=== PATIENT | male | born 1990 | race Caucasian/White ===

== ENCOUNTER → 2020-01-30 14:26 | Outpatient (BNVA) | payer MEDICAID, SELFPAY | PROVIDERS: PCP Internal Medicine; Visit Provider Internal Medicine Endocrinology, Diabetes & Metabolism | DX: E89.0 Postprocedural hypothyroidism (principal); E05.00 Thyrotoxicosis with diffuse goiter without thyrotoxic crisis or storm | CPT/HCPCS: 99212 ==

== ENCOUNTER 2020-08-01 14:00 | Outpatient (REF) | payer OTHER, MEDICAID, SELFPAY ==
[2020-08-01 16:27] LABS: Thyroid Stimulating Hormone 0.35 uIU/mL (0.32-4.0)
== END 2020-08-01 14:01 | disposition home or self-care (01) ==
LOC: HO.LAB 14:00
PROVIDERS: PCP Internal Medicine; Visit Provider Internal Medicine Endocrinology, Diabetes & Metabolism
DX: E05.00 Thyrotoxicosis with diffuse goiter without thyrotoxic crisis or storm (principal); E89.0 Postprocedural hypothyroidism; F17.200 Nicotine dependence, unspecified, uncomplicated; Z79.899 Other long term (current) drug therapy; Z71.6 Tobacco abuse counseling
CPT/HCPCS: 36415; 84439; 84443; 99212

== ENCOUNTER → 2021-03-07 09:13 | Outpatient (BNV) | payer OTHER, MEDICAID, SELFPAY | PROVIDERS: PCP Internal Medicine; Visit Provider Internal Medicine Medical Oncology | DX: R59.0 Localized enlarged lymph nodes (principal); D64.9 Anemia, unspecified | CPT/HCPCS: 99213; 99214 ==

== ENCOUNTER 2021-03-27 08:43 | Outpatient (REF) | payer OTHER, SELFPAY ==
--- NOTE | ~2021-03-27 | US_ITS ---
EXAMINATION: US SOFT TISSUE HEAD/NECK CLINICAL INFORMATION: Cervical lymphadenopathy. COMPARISON: Ultrasound soft tissue head/neck 11/07/2019. TECHNIQUE: Linear transducer grayscale and color Doppler examination of the thyroid bed and surrounding soft tissue. FINDINGS: There are are multiple bilateral cervical lymph nodes. There are at least 5 lymph nodes identified on the right and 4 lymph nodes identified on the left. Largest right cervical lymph node is a 2.3 x 1 x 2 cm zone 2 lymph node. This demonstrates abnormal ultrasound morphology with cortical thickening and slitlike hilum. The largest left cervical lymph node is a 2.6 x 0.8 x 1.9 cm level 2 lymph node. This also demonstrates cortical thickening and slitlike hilum. Both these lymph nodes demonstrate both hilar and cortical flow. The larger lymph nodes appear similar to October 2019 exam. US/US soft tiss head and/or neck IMPRESSION: Bilateral cervical lymphadenopathy. Larger lymph nodes are upper normal in size and demonstrate abnormal ultrasound morphology and flow.
--- NOTE | ~2021-03-27 | US_ITS ---
EXAMINATION: US pelvic, LIMITED/FOLLOW UP CLINICAL INFORMATION: Inguinal lymphadenopathy COMPARISON: CT of the abdomen and pelvis January 2015 TECHNIQUE: Grayscale and color imaging of the bilateral inguinal regions using a linear transducer FINDINGS: There is bilateral inguinal lymphadenopathy. 3 lymph nodes are identified in the right and 4 lymph nodes are identified on the left. Larger lymph nodes are upper normal in size. Lymph nodes demonstrate normal ultrasound morphology and flow. Largest right inguinal lymph node measures 4.2 x 1 x 1.5 cm and largest left inguinal lymph node measures 2.2 x 0.5 x 1.9 cm. US/US pelvic limited IMPRESSION: Bilateral inguinal lymphadenopathy. Larger lymph nodes are upper normal in size. All lymph nodes demonstrate normal ultrasound morphology and flow.
== END 2021-03-27 08:44 | disposition home or self-care (01) ==
LOC: HO.HMGCX 08:43
PROVIDERS: PCP Internal Medicine; Visit Provider Internal Medicine Medical Oncology
DX: R59.0 Localized enlarged lymph nodes (principal)
CPT/HCPCS: 76536; 76857

== ENCOUNTER 2021-05-15 09:25 | Outpatient (REF) | payer OTHER, MEDICAID, SELFPAY ==
--- NOTE | ~2021-05-15 | US_ITS ---
EXAMINATION: ULTRASOUND-GUIDED LYMPH NODE BIOPSY CLINICAL INFORMATION: Right cervical lymphadenopathy. COMPARISON: Previous ultrasounds March 2021 and October 2019. TECHNIQUE: Procedure and risks and benefits including bleeding and infection were discussed with the patient and informed consent was obtained. The right neck was prepped and draped in the usual sterile fashion. The skin and soft tissues were anesthetized with 1% lidocaine plain. Using ultrasound guidance and a 22-gauge needle, access to the enlarged right level 2 lymph node was obtained. Three 22-gauge FNA specimens were obtained. Specimen was sent for cytology, flow cytometry and microbiology studies. FINDINGS: There is a 3.9 x 2.4 x 1 cm right submandibular or level 2 cervical lymph node that was targeted for fine-needle aspiration. This demonstrates hilar flow. This appears diffusely hypoechoic with loss of normal fatty hilum. US/US biopsy lymph node IMPRESSION: Ultrasound-guided right cervical lymph node fine-needle aspiration.
[2021-05-15] MEDS: Lidocaine HCl 1 % MPF 5 ML VIAL SUBCUT (09:55)
== END 2021-05-15 09:26 | disposition home or self-care (01) ==
LOC: HO.US 09:25
PROVIDERS: Radiology Diagnostic Radiology; Visit Provider Internal Medicine Medical Oncology
DX: R59.0 Localized enlarged lymph nodes (principal)
CPT/HCPCS: 36415; 38505; 76942; 87071; 87073; 87205; 88172; 88173; 88177; 88184; 88185

== ENCOUNTER 2022-03-11 09:14 | Outpatient (REF) | payer MEDICAID, SELFPAY ==
[2022-03-11 09:36] LABS: MANUAL DIFF FLAG NO
[2022-03-11 10:36] LABS: Basophils Percent Auto 0.8 % (0-2); Eosinophils Absolute Auto 0.1 X10*3/uL (0.0-0.4); Eosinophils Percent Auto 1.3 % (0-4); Hematocrit 38.8 % (42.0-52.0); Lymphocytes Absolute Auto 1.6 X10*3/uL (1.2-4.9); Lymphocytes Percent Auto 41.5 % (20-40); Mean Corpuscular HGB Conc 33.5 g/dl (31.0-36.0); Mean Corpuscular Hemoglobin 33.1 pg (27.0-33.0); Mean Corpuscular Volume 98.7 fL (80.0-98.0); Mean Platelet Volume 10.3 fL (9.4-12.4); Monocytes Absolute Auto 0.4 X10*3/uL (0.1-1.2); Monocytes Percent Auto 9.7 % (2-11); Neutrophils Absolute Auto 1.8 x10*3/uL (2.0-8.3); Neutrophils Percent Auto 46.7 % (45-73); Platelet Count 358 X10*3/uL (160-400); Red Blood Count 3.93 X10*6/uL (4.60-5.80); White Blood Count 3.8 X10*3/uL (4.8-10.8)
[2022-03-11 11:19] LABS: Erythrocyte Sedimentation Rate 7 MM/HR (0-15)
[2022-03-11 11:28] LABS: Alanine Aminotransferase 14 U/L (0-40); Albumin Level 4.6 g/dL (3.5-5.0); Alkaline Phosphatase 66 U/L (39-117); Anion Gap 12 (12-20); Aspartate Amino Transferase 19 U/L (5-37); Bilirubin Total 1.2 mg/dL (0.0-1.0); Blood Urea Nitrogen 11 mg/dL (9-16); Calcium 9.6 mg/dL (8.4-10.2); Carbon Dioxide 26 mmol/L (22-29); Chloride 108 mmol/L (96-108); Estimated Glomerular Filt Rate > 60; Glucose Random 70 mg/dL (60-115); Potassium 4.4 mmol/L (3.3-5.1); Sodium 142 mmol/L (135-145); Total Protein 6.9 g/dL (6.5-8.0)
[2022-03-11 11:45] LABS: Ferritin 176 ng/mL (20-250)
== END 2022-03-11 09:15 | disposition home or self-care (01) ==
LOC: HO.LAB 09:14
PROVIDERS: Absent Provider Internal Medicine Medical Oncology; Visit Provider Internal Medicine Endocrinology, Diabetes & Metabolism
DX: D64.9 Anemia, unspecified (principal)
CPT/HCPCS: 36415; 80053; 82728; 85025; 85652

== ENCOUNTER → 2022-03-12 07:54 | Outpatient (BNVA) | payer MEDICAID, SELFPAY | PROVIDERS: PCP Internal Medicine; Visit Provider Internal Medicine Endocrinology, Diabetes & Metabolism | DX: E89.0 Postprocedural hypothyroidism (principal); E05.00 Thyrotoxicosis with diffuse goiter without thyrotoxic crisis or storm; F17.210 Nicotine dependence, cigarettes, uncomplicated | CPT/HCPCS: 36415; 84439; 84443; 99212 ==

== ENCOUNTER 2022-03-12 08:21 | Outpatient (REF) | payer MEDICAID, SELFPAY ==
[2022-03-12 11:43] LABS: Thyroid Stimulating Hormone 0.22 uIU/mL (0.32-4.0)
== END 2022-03-12 08:22 | disposition home or self-care (01) ==
LOC: HO.10HDL 08:21
PROVIDERS: Visit Provider Internal Medicine Endocrinology, Diabetes & Metabolism
DX: E89.0 Postprocedural hypothyroidism (principal)
CPT/HCPCS: 36415; 84439; 84443

== ENCOUNTER 2022-03-24 07:49 | Outpatient (REF) | payer MEDICAID, SELFPAY ==
[2022-03-24 08:01] LABS: MANUAL DIFF FLAG NO
[2022-03-24 08:24] LABS: Basophils Percent Auto 0.7 % (0-2); Eosinophils Absolute Auto 0.1 X10*3/uL (0.0-0.4); Eosinophils Percent Auto 2.4 % (0-4); Hematocrit 40.9 % (42.0-52.0); Hemoglobin 13.5 g/dl (14.0-18.0); Imm Gran Abs Auto 0.01 X10*3/uL (0.00-0.03); Imm Gran Pct Auto 0.2 % (0.0-0.4); Lymphocytes Absolute Auto 1.8 X10*3/uL (1.2-4.9); Lymphocytes Percent Auto 40.2 % (20-40); Mean Corpuscular Hemoglobin 32.5 pg (27.0-33.0); Mean Corpuscular Volume 98.6 fL (80.0-98.0); Mean Platelet Volume 9.8 fL (9.4-12.4); Monocytes Absolute Auto 0.4 X10*3/uL (0.1-1.2); Monocytes Percent Auto 8.8 % (2-11); Neutrophils Absolute Auto 2.2 x10*3/uL (2.0-8.3); Neutrophils Percent Auto 47.7 % (45-73); Platelet Count 286 X10*3/uL (160-400); Red Blood Count 4.15 X10*6/uL (4.60-5.80); White Blood Count 4.6 X10*3/uL (4.8-10.8)
[2022-03-24 09:00] LABS: Alanine Aminotransferase 16 U/L (0-40); Albumin Level 4.7 g/dL (3.5-5.0); Alkaline Phosphatase 71 U/L (39-117); Anion Gap 13 (12-20); Aspartate Amino Transferase 18 U/L (5-37); Bilirubin Total 1.3 mg/dL (0.0-1.0); Blood Urea Nitrogen 14 mg/dL (9-16); Calcium 9.6 mg/dL (8.4-10.2); Carbon Dioxide 25 mmol/L (22-29); Chloride 106 mmol/L (96-108); Estimated Glomerular Filt Rate > 60; Glucose Random 93 mg/dL (60-115); Lactate Dehydrogenase 125 U/L (118-273); Potassium 4.3 mmol/L (3.3-5.1); Sodium 140 mmol/L (135-145)
[2022-03-24 09:08] LABS: Free T4 (Free Thyroxine) 1.24 ng/dL (0.71-1.85)
== END 2022-03-24 07:50 | disposition home or self-care (01) ==
LOC: HO.LAB 07:49
PROVIDERS: Absent Provider Internal Medicine Endocrinology, Diabetes & Metabolism; Visit Provider Internal Medicine Medical Oncology
DX: E89.0 Postprocedural hypothyroidism (principal); R59.0 Localized enlarged lymph nodes
CPT/HCPCS: 36415; 80053; 83615; 84439; 84443; 85025

== ENCOUNTER 2022-04-30 13:29 | Outpatient (REF) | payer MEDICAID, SELFPAY ==
[2022-04-30 14:35] LABS: Free T4 (Free Thyroxine) 0.99 ng/dL (0.71-1.85); Thyroid Stimulating Hormone 0.28 uIU/mL (0.32-4.0)
== END 2022-04-30 13:30 | disposition home or self-care (01) ==
LOC: HO.LAB 13:29
PROVIDERS: Visit Provider Internal Medicine Endocrinology, Diabetes & Metabolism
DX: E89.0 Postprocedural hypothyroidism (principal)
CPT/HCPCS: 36415; 84439; 84443

== ENCOUNTER 2023-03-11 16:30 | Outpatient (AMB) | payer OTHER, SELFPAY ==
--- NOTE | 2023-03-11 16:34 | MHC.OFFVIS ---
Intake Vital Signs 03/11/23 16:35 Height 5 ft 6 in Weight 141 lb 5.061 oz BMI 22.8 BP 100/64 Blood Pressure Location Rt brachial Position Sitting Pulse 63 Pulse Source Pulse Oximeter Intake Visit Reasons: post-surgical hypothyroidism Intake Note: Patient present today for post-surgical Hypothyroidism follow up visit. Patient Admitting Representative Required: Yes Patient Admitting Representative Language: Labeling Machine Operator Name: Nikole Medical Staff, CMI Information Interpreted: non-clinical & clinical Accompanied by: Self / Same As Patient Allergies No Known Allergies Allergy (Verified 03/11/23 16:37) HPI HPI Comments History of Present Illness Details 31 yo male today for fup visit, for post surgical hypothyroidism. He is feeling well. Has no complaints. Last visit I had some concern about acromegaly. The IGF-1 was normal. He is currently on levothyroxine 75 mcg daily. Has a good method of administration is 100% adherent. He is complaining of fatigue, increased sweating. He reports that he sweats a lot at nighttime. He also is complaining that his hands are getting bigger. His complaining of hand pain in the joints. He has h/o of Graves disease, treated with total thyroidectomy on 5 due to active graves disease and smoking. He is 100 % adherent, but is taking it with Vit D. He denies diarrhea, palpitations, denies dysphagia, dyspnea, dysphonia, denies tremors, palpitations, irritability, + anxiety, denies eye dryness, eye pain, excessive lacrimation, diplopia 01/30/2020 [facility] TSH 3.05 mIU/mL Free T4 1.2 ng/dL IGF-1 137 ng per mL Laboratory Tests 02/18/18 09:30 Free T4 1.76 TSH 3rd Generation 0.01 L [facility] Medical History (Updated 10/28/22 @ 11:44 by Kueski [place]) Graves disease Post-surgical hypothyroidism Surgical History Hx of thyroidectomy Family History Father No problems noted. Mother Depression Maternal Grandfather Cancer Maternal Aunt Cancer Social History Household Members: Significant Other and Children Housing: Apartment Are you a primary respiratory care assistant to a significant other at home: No Do you presently have visiting nurse or other home services: No Patient Tobacco Use Status: Current someday Tobacco user Tobacco use type: Cigarette Substance Use Type: Marijuana service: No Current occupational status: employed Physical Exam Const Other: Healed scar status post thyroidectomy Assessment & Plan Assessment & Plan (1) Post-surgical hypothyroidism: Code(s): E89.0 - Postprocedural hypothyroidism Plan: This is a 32-year-old male with a history of post-surgical hypothyroidism. He appears to be clinically euthyroid on 75 mcg levothyroxine. Plan is to check a TSH and free T4 and adjust levothyroxine accordingly. Coding Level of Care Code Est Pt Level 3 (80048) Diagnoses Post-surgical hypothyroidism E89.0
[2023-03-11 16:35] VITALS: BP 100/64; PULSE 63; BMI 22.8
== END 2023-03-11 16:45 | disposition home or self-care (01) ==
PROVIDERS: PCP Internal Medicine; Referring Provider Internal Medicine; Visit Provider Internal Medicine Endocrinology, Diabetes & Metabolism
DX: E89.0 Postprocedural hypothyroidism (principal)
CPT/HCPCS: 99213

== ENCOUNTER → 2023-03-11 16:30 | Outpatient (BNVA) | payer MEDICAID, SELFPAY | PROVIDERS: Visit Provider Internal Medicine Endocrinology, Diabetes & Metabolism | DX: E89.0 Postprocedural hypothyroidism (principal) | CPT/HCPCS: 99212 ==

== ENCOUNTER 2023-03-23 15:41 | Outpatient (REF) | payer OTHER, SELFPAY ==
[2023-03-23 16:57] LABS: Free T4 (Free Thyroxine) 1.03 ng/dL (0.71-1.85); Thyroid Stimulating Hormone 1.44 uIU/mL (0.32-4.0)
== END 2023-03-23 15:42 | disposition home or self-care (01) ==
LOC: HO.LAB 15:41
PROVIDERS: Visit Provider Internal Medicine Endocrinology, Diabetes & Metabolism
DX: E89.0 Postprocedural hypothyroidism (principal)
CPT/HCPCS: 36415; 84439; 84443

== ENCOUNTER 2023-09-09 16:12 | Outpatient (AMB) | payer OTHER, SELFPAY ==
[2023-09-09 16:15] VITALS: BP 120/84; PULSE 69; BMI 22.0
--- NOTE | 2023-09-09 16:15 | A.OFFVIS_ITS ---
Vital Signs 09/09/23 16:15 Height 5 ft 6 in Weight 136 lb 0.403 oz BMI 22.0 BP 120/84 Blood Pressure Location Rt brachial Pulse 69 Pulse Source Pulse Oximeter Intake Visit Reasons: f/u postsurgical hypothyroidism Intake Note: Patient presents today for a follow-up Realtime Captioner Required: Yes Realtime Captioner Language: Entry Level Business Analyst Services: Realtime Captioner Present Realtime Captioner Name: Ina Accompanied by: Self / Same As Patient Allergies No Known Allergies Allergy (Verified 03/11/23 16:37) HPI Comments Details: 32 yo male today for fup visit, for post surgical hypothyroidism. He is feeling well. Has no complaints. Last visit I had some concern about acromegaly. The IGF-1 was normal. He is currently on levothyroxine 75 mcg daily. Has a good method of administration is 100% adherent. He is complaining of fatigue, increased sweating. He reports that he sweats a lot at nighttime. He also is complaining that his hands are getting bigger. His complaining of hand pain in the joints. He has h/o of Graves disease, treated with total thyroidectomy on 5 due to active graves disease and smoking. He is 100 % adherent, but is taking it with Vit D. He denies diarrhea, palpitations, denies dysphagia, dyspnea, dysphonia, denies tremors, palpitations, irritability, + anxiety, denies eye dryness, eye pain, excessive lacrimation, diplopia 01/30/2020 [facility] TSH 3.05 mIU/mL Free T4 1.2 ng/dL IGF-1 137 ng per mL Laboratory Tests 02/18/18 09:30 Free T4 1.76 TSH 3rd Generation 0.01 L Claims compliance [facility] Medical History (Updated 10/28/22 @ 11:44 by Frequent Browser [place]) Graves disease Post-surgical hypothyroidism Surgical History Hx of thyroidectomy Family History Father No problems noted. Mother Depression Maternal Grandfather Cancer Maternal Aunt Cancer Social History Household Members: Significant Other and Children Housing: Apartment Are you a primary health care marketing specialist to a significant other at home: No Do you presently have visiting nurse or other home services: No Patient Tobacco Use Status: Current someday Tobacco user Tobacco use type: Cigarette Substance Use Type: Marijuana service: No Current occupational status: employed Physical Exam Vital Signs: BMI result Body Mass Index 22.0 Const Other: Healed scar status post thyroidectomy Assessment & Plan Assessment & Plan (1) Post-surgical hypothyroidism: Code(s): E89.0 - Postprocedural hypothyroidism Category: Medical Plan: This is a 32-year-old male with a history of post-surgical hy pothyroidism. He appears to be clinically euthyroid on 75 mcg levothyroxine. Plan is to check a TSH and free T4 and adjust levothyroxine accordingly. If TSH is within normal limits, patient returned to the care of his primary care provider returned back to endocrinology as needed Orders: Orders Thyroid Stimulating Hormone Today E89.0 - Postprocedural hypothyroidism Free T4 (Free Thyroxine) Today E89.0 - Postprocedural hypothyroidism Coding Level of Care Code Est Pt Level 3 (69821) Diagnoses Post-surgical hypothyroidism E89.0
== END 2023-09-09 16:25 | disposition home or self-care (01) ==
PROVIDERS: PCP Internal Medicine; Visit Provider Internal Medicine Endocrinology, Diabetes & Metabolism
DX: E89.0 Postprocedural hypothyroidism (principal)
CPT/HCPCS: 99213

== ENCOUNTER → 2023-09-09 16:12 | Outpatient (BNVA) | payer OTHER, SELFPAY | PROVIDERS: PCP Internal Medicine; Visit Provider Internal Medicine Endocrinology, Diabetes & Metabolism | DX: E89.0 Postprocedural hypothyroidism (principal) | CPT/HCPCS: 99212 ==

== ENCOUNTER 2023-09-14 14:19 | Outpatient (REF) | payer OTHER, SELFPAY ==
[2023-09-14 16:06] LABS: MANUAL DIFF FLAG NO
[2023-09-14 16:16] LABS: Basophils Absolute Auto 0.1 X10*3/uL (0.0-0.2); Eosinophils Absolute Auto 0.2 X10*3/uL (0.0-0.4); Eosinophils Percent Auto 4.6 % (0-4); Hemoglobin 12.8 g/dl (14.0-18.0); Imm Gran Abs Auto 0.01 X10*3/uL (0.00-0.03); Imm Gran Pct Auto 0.2 % (0.0-0.4); Mean Corpuscular HGB Conc 33.7 g/dl (31.0-36.0); Mean Corpuscular Hemoglobin 32.7 pg (27.0-33.0); Mean Corpuscular Volume 97.2 fL (80.0-98.0); Mean Platelet Volume 10.3 fL (9.4-12.4); Monocytes Absolute Auto 0.4 X10*3/uL (0.1-1.2); Monocytes Percent Auto 7.1 % (2-11); Neutrophils Absolute Auto 2.6 x10*3/uL (2.0-8.3); Neutrophils Percent Auto 49.1 % (45-73); Platelet Count 275 X10*3/uL (160-400); Red Blood Count 3.91 X10*6/uL (4.60-5.80); Red Cell Distribution Width 11.1 % (11.0-16.0); White Blood Count 5.2 X10*3/uL (4.8-10.8)
[2023-09-14 16:38] LABS: Alanine Aminotransferase 14 U/L (0-40); Albumin Level 4.5 g/dL (3.5-5.0); Alkaline Phosphatase 66 U/L (39-117); Anion Gap 11 (12-20); Aspartate Amino Transferase 17 U/L (5-37); Bilirubin Total 1.1 mg/dL (0.0-1.0); Blood Urea Nitrogen 13 mg/dL (9-16); Calcium 9.6 mg/dL (8.4-10.2); Carbon Dioxide 29 mmol/L (22-29); Chloride 103 mmol/L (96-108); Estimated Glomerular Filt Rate > 60; Glucose Random 101 mg/dL (60-115); Potassium 3.8 mmol/L (3.3-5.1); Sodium 139 mmol/L (135-145)
[2023-09-14 16:54] LABS: Ferritin 167 ng/mL (20-250)
[2023-09-14 16:55] LABS: Free T4 (Free Thyroxine) 0.93 ng/dL (0.71-1.85); Thyroid Stimulating Hormone 1.26 uIU/mL (0.32-4.0)
== END 2023-09-14 14:20 | disposition home or self-care (01) ==
LOC: HO.HHCL 14:19
PROVIDERS: Internal Medicine Endocrinology, Diabetes & Metabolism; Visit Provider Internal Medicine Medical Oncology
DX: E89.0 Postprocedural hypothyroidism (principal); R59.0 Localized enlarged lymph nodes
CPT/HCPCS: 36415; 80053; 82728; 84439; 84443; 85025

== ENCOUNTER 2023-12-28 11:55 | Emergency (ER) | payer OTHER, SELFPAY ==
--- NOTE | ~2023-12-28 | XR_ITS ---
EXAMINATION: XR CHEST CLINICAL INFORMATION: Syncope. COMPARISON: 10/23/2017. TECHNIQUE: 2 views of the chest were obtained. FINDINGS: Cardiac, hilar, and mediastinal contours are normal. The lungs are clear bilaterally. There is no soft tissue or osseous abnormality. There is a mild dextroconvex scoliosis of the thoracic spine, apex at T6. XR/XR chest 2V IMPRESSION: No active pulmonary disease. Electronically signed by: Oleksandr Leonardo MD 12/28/2023 01:20 PM [facility]
--- NOTE | ~2023-12-28 | CT_ITS ---
EXAMINATION: CT HEAD WITHOUT CONTRAST CT CERVICAL SPINE WITHOUT CONTRAST CLINICAL INFORMATION: Fall. Head strike. COMPARISON: None. TECHNIQUE: Imaging was performed from the skull base to vertex without intravenous administration of contrast. In addition, helical noncontrast CT imaging was acquired through the cervical spine and source images were reviewed along with axial reconstructions and sagittal and coronal MPRs. [This CT examination was performed using dose optimization techniques as appropriate, variously including the following: *Automated exposure control *Adjustment of mA and/or kV according to patient size (this includes techniques or standardized protocols for targeted exams where dose is matched to indication/reason for exam; i.e. extremities or head) *Use of iterative reconstruction technique] DLP: 317 mGy-cm FINDINGS: HEAD: No intracranial mass, hemorrhage, or midline shift is visualized. The ventricles and sulci are proportional. No extra-axial collections are identified. The paranasal sinuses and mastoid air cells are well aerated. CERVICAL SPINE: There is no evidence of acute cervical spine fracture. Vertebral bodies remain normal in height. Cervical vertebrae have normal alignment. Cervical disc heights are normal. Facet joints are normal. No pre- or paravertebral soft tissue abnormality is identified. Limited assessment of the lung apices is unremarkable. CT/CT head/brain wo IV con IMPRESSION: 1. No acute intracranial pathology. 2. No CT evidence of acute cervical spine fracture or traumatic subluxation. Electronically signed by: Demar Cabrera MD 12/28/2023 03:14 PM [facility]
--- NOTE | ~2023-12-28 | CT_ITS ---
EXAMINATION: CT HEAD WITHOUT CONTRAST CT CERVICAL SPINE WITHOUT CONTRAST CLINICAL INFORMATION: Fall. Head strike. COMPARISON: None. TECHNIQUE: Imaging was performed from the skull base to vertex without intravenous administration of contrast. In addition, helical noncontrast CT imaging was acquired through the cervical spine and source images were reviewed along with axial reconstructions and sagittal and coronal MPRs. [This CT examination was performed using dose optimization techniques as appropriate, variously including the following: *Automated exposure control *Adjustment of mA and/or kV according to patient size (this includes techniques or standardized protocols for targeted exams where dose is matched to indication/reason for exam; i.e. extremities or head) *Use of iterative reconstruction technique] DLP: 317 mGy-cm FINDINGS: HEAD: No intracranial mass, hemorrhage, or midline shift is visualized. The ventricles and sulci are proportional. No extra-axial collections are identified. The paranasal sinuses and mastoid air cells are well aerated. CERVICAL SPINE: There is no evidence of acute cervical spine fracture. Vertebral bodies remain normal in height. Cervical vertebrae have normal alignment. Cervical disc heights are normal. Facet joints are normal. No pre- or paravertebral soft tissue abnormality is identified. Limited assessment of the lung apices is unremarkable. CT/CT cervical spine wo IV con IMPRESSION: 1. No acute intracranial pathology. 2. No CT evidence of acute cervical spine fracture or traumatic subluxation. Electronically signed by: Demar Cabrera MD 12/28/2023 03:14 PM [facility]
[2023-12-28 12:22] VITALS: BP 142/76; PULSE 65; RESP 16; TEMP 36.6; O2SAT 100; BMI 22.2
--- NOTE | 2023-12-28 12:28 | ED.GENADULT ---
HPI - General Adult General Chief complaint: Syncope Stated complaint: fall head Time Seen by Provider: 12/28/23 21:26 Source: patient Mode of arrival: ambulatory Limitations: no limitations History of Present Illness ED Provider: KD RICKETTS narrative: 33 yo male with PMH of graves disease here with c/o drinking a beverly juice drink last night that then caused nausea and significant abdominal pain then went to use bathroom and woke up on the floor. Family found his leaning on wall on the floor. He denies feeling ill before the drink. This has never happened before to him. No recent travel, procedures, chest pain, dyspnea. He came in because when he bends over he feels dizzy and he still feels dizzy today on and off. He did not work MD complaint: syncope Onset (ago): day(s) (1) Location: head Radiation: non-radiation Severity: mild Quality: other (dizziness) Relieving factors: none Exacerbating factors: movement Associated symptoms: denies other symptoms Treatments prior to arrival: none Related Data Home Medications ?Medication ?Instructions ?Recorded ?Confirmed albuterol sulfate 90 mcg/actuation 2 puff PO QID PRN wheezing 08/01/20 11/26/23 aerosol inhaler fluticasone propionate 50 2 spray intranasal DAILY congestion 08/01/20 11/26/23 mcg/actuation nasal spray,suspension lidocaine 5 % topical patch 5 patch topical DAILY 04/11/21 11/26/23 Previous Rx's ?Medication ?Instructions ?Recorded levothyroxine 75 mcg tablet 75 mcg PO DAILY 30 days #30 tabs 09/16/23 Allergies Allergy/AdvReac Type Severity Reaction Status Date / Time No Known Allergies Allergy Verified 12/28/23 12:25 Review of Systems Review of Systems: Constitutional : No Fever, No Chills, No Fatigue ENT/Mouth : No sore throat, No Rhinorrhea Eyes: No Eye Pain, No Swelling, No Redness Cardiovascular : No Chest Pain, No SOB, No Dyspnea on Exertion Respiratory : No Cough, No Sputum Gastrointestinal : No Nausea, No Vomiting, No Diarrhea, No abdominal Pain Genitourinary : No Dysuria, No Urinary Frequency, No Hematuria, Musculoskeletal : No joint pain, No Myalgias, No Joint Swelling Skin : No Skin Lesions, No rash Neuro : No Weakness, No Numbness, pos Dizziness, no Headache Psych : No Anxiety/Panic, No Depression All other systems reviewed and are negative [facility] Past Medical History Attestation statement: The following information was validated with the patient. Source: old records reviewed Medical History Graves disease Post-surgical hypothyroidism Surgical History Hx of thyroidectomy Family History Family History Father No problems noted. Mother Depression Maternal Grandfather Cancer Maternal Aunt Cancer Social History Social History Household Members: Significant Other and Children Housing: Apartment Are you a primary career development engineer to a significant other at home: No Do you presently have visiting nurse or other home services: No Patient Tobacco Use Status: Current someday Tobacco user Tobacco use type: Cigarette Substance Use Type: Marijuana Advance Directives: No Advance Directives Information Provided: No Do you have a plan to hurt others: No Plan service: No Current occupational status: employed Physical Exam ED Vital Signs: Vital Signs - 24 hr 12/28/23 12:22 Temperature 97.9 F Pulse Rate 65 Respiratory Rate 16 Blood Pressure 142/76 H Pulse Oximetry 100 Oxygen Delivery Method Room Air BMI result Body Mass Index 22.2 Appearance: Alert. Oriented X3. No acute distress. Eyes: Pupils equal, round and reactive to light. ENT: Pharynx normal. atraumatic Neck: Normal inspection. Neck supple. CVS: Normal heart rate and rhythm. Pulses normal. Respiratory: No respiratory distress. Breath sounds normal. Abdomen: Soft and non-tender. Skin: Skin warm and dry. Normal skin color. Normal skin turgor. Extremities: No lower extremity edema. Neuro: Oriented X 3. No motor deficit. No sensory deficit. normal gait no ataxia Course Course Course Narrative: RME performed by Elle Freeman PA-C. Patient is a 33 year old assigned male at presenting to the emergency department with dizziness and a head strike. Patient states yesterday he got dizzy, fell, and hit his head. Detailed physical exam and review of systems are deferred to the crisis clinician. EKG, labs, imaging, and swabs ordered. Patient placed back in the waiting room pending room availability and results. Medical Decision Making Medical Decision Making [facility] Narrative: 33 yo male with PMH of graves disease here with c/o abdominal pain yesterday and nausea that resulted in intense pain and nausea then woke up on floor since then c/o dizziness and headache at this time labs, CT head/cspine, EKG, - he has normal gait and GCS 15. He will need basic labs, CT head/cspine other than mild dizziness no other symptoms reported. He is not toxic appearing - seems related to juice no preceding cardiac symptoms or risk factors for VTE. If work up negative stable for DC Differential Diagnosis Differential Diagnoses: The differential diagnosis associated with the presentation includes vasovagal syncope, concussion, head injury, dehydration Admission/Observation Consideration of admission/observation: Escalation of care including admission/observation considered work up negative GCS 15, steady gait stable for DC Lab Data [facility] Lab Attestation statement: I reviewed the patient's lab results. 12/28/23 13:13 12/28/23 13:13 Labs: Lab Results 12/28/23 Range/Units 13:13 WBC 4.6 L (4.8-10.8) X10*3/uL RBC 4.09 L (4.60-5.80) X10*6/uL Hgb 13.2 L (14.0-18.0) g/dl Hct 39.6 L (42.0-52.0) % MCV 96.8 (80.0-98.0) fL MCH 32.3 (27.0-33.0) pg MCHC 33.3 (31.0-36.0) g/dl RDW 11.3 (11.0-16.0) % Plt Count 273 (160-400) X10*3/uL MPV 9.4 (9.4-12.4) fL Immature Gran % (Auto) 0.2 (0.0-0.4) % Neut % (Auto) 50.3 (45-73) % Lymph % (Auto) 38.4 (20-40) % [place] % (Auto) 8.0 (2-11) % Eos % (Auto) 2.4 (0-4) % Baso % (Auto) 0.7 (0-2) % Lymph # (Auto) 1.8 (1.2-4.9) X10*3/uL [place] # (Auto) 0.4 (0.1-1.2) X10*3/uL Eos # (Auto) 0.1 (0.0-0.4) X10*3/uL Baso # (Auto) 0.0 (0.0-0.2) X10*3/uL Abs Immat Gran (auto) 0.01 (0.00-0.03) X10*3/uL Absolute Neuts (auto) 2.3 (2.0-8.3) x10*3/uL Absolute Nucleated RBC 0.000 (0.0-0.012) X10*3/uL Nucleated RBC % (auto) 0.0 (0.0-0.2) /100WBC Sodium 141 (135-145) mmol/L Potassium 3.9 (3.3-5.1) mmol/L Chloride 106 (96-108) mmol/L Carbon Dioxide 26 (22-29) mmol/L Anion Gap 13 (12-20) BUN 11 (9-16) mg/dL Creatinine 0.86 (0.5-1.4) mg/dL Estim Creat Clear Calc 106.8 Estimated GFR > 60 Random Glucose 99 (60-115) mg/dL Calcium 9.6 (8.4-10.2) mg/dL Magnesium 2.2 (1.6-2.6) mg/dL Total Bilirubin 1.3 H (0.0-1.0) mg/dL AST 27 (5-37) U/L ALT 27 (0-40) U/L Alkaline Phosphatase 65 (39-117) U/L Troponin I High Sens < 2.7 (<3.5-35.0) ng/L Total Protein 7.4 (6.5-8.0) g/dL Albumin 4.7 (3.5-5.0) g/dL Influenza Type A (PCR) NEGATIVE (Negative) Influenza Type B (PCR) NEGATIVE (Negative) RSV RNA Qual (PCR) NEGATIVE (Negative) SARS-CoV-2 RNA (RT-PCR) NEGATIVE (Negative) Independent Interpretation I performed an independent interpretation of an: EKG, Plain X-Ray (normal ) and CT Scan (no trauma) Interpretation: Rate: 50 Rhythm: sinus bradycardia [place]: normal Normal P waves. Normal [place]. Normal QRS complex. ST T wave : inverted t wave III, no BOBBI qTC: 371 prior studies: no acute ischemia The study has been interpreted contemporaneously by me. . Discharge Plan Discharge Clinical Impression: Vasovagal syncope, Concussion Patient Disposition: Home, Self-Care Instructions: Syncope (ED), Concussion (ED) Additional Instructions: return for worsening symptoms - increased headaches, vomiting, chest pain or any other concerns stay hydrated and rest labs and CT scan/chest xray normal Prescriptions: No Action levothyroxine 75 mcg tablet 75 mcg PO DAILY 30 Days Qty: 30 4RF Rx Instructions: daily on an empty stomach and do not take at the same time as other medications lidocaine 5 % adhesive patch,medicated 5 patch topical DAILY fluticasone propionate 50 mcg/actuation spray,suspension 2 spray intranasal DAILY albuterol sulfate 90 mcg/actuation HFA aerosol inhaler 2 puff PO QID PRN (Reason: wheezing) Stand Alone Forms: Work/School Release Interventions: ED Discharge Assessment Last Done: 12/28/23 22:23 Discharge Date/Time: 12/28/23 22:23 Print Language: Other
--- NOTE | 2023-12-28 12:29 | ECG_ITS ---
Test Reason : syncopy Blood Pressure : / mmHG Vent. Rate : 050 BPM Atrial Rate : 050 BPM P-R Int : 124 ms QRS Dur : 086 ms QT Int : 408 ms P-R-T Axes : 043 062 022 degrees QTc Int : 371 ms Sinus bradycardia Otherwise normal ECG No previous ECGs available Referred By: Elle Freeman Electronically Signed By:Peter Waddell
[2023-12-28 13:17] LABS: MANUAL DIFF FLAG NO
[2023-12-28 13:24] LABS: Basophils Percent Auto 0.7 % (0-2); Eosinophils Absolute Auto 0.1 X10*3/uL (0.0-0.4); Eosinophils Percent Auto 2.4 % (0-4); Hematocrit 39.6 % (42.0-52.0); Hemoglobin 13.2 g/dl (14.0-18.0); Imm Gran Abs Auto 0.01 X10*3/uL (0.00-0.03); Imm Gran Pct Auto 0.2 % (0.0-0.4); Lymphocytes Absolute Auto 1.8 X10*3/uL (1.2-4.9); Lymphocytes Percent Auto 38.4 % (20-40); Mean Corpuscular HGB Conc 33.3 g/dl (31.0-36.0); Mean Corpuscular Hemoglobin 32.3 pg (27.0-33.0); Mean Corpuscular Volume 96.8 fL (80.0-98.0); Mean Platelet Volume 9.4 fL (9.4-12.4); Monocytes Absolute Auto 0.4 X10*3/uL (0.1-1.2); Neutrophils Absolute Auto 2.3 x10*3/uL (2.0-8.3); Neutrophils Percent Auto 50.3 % (45-73); Platelet Count 273 X10*3/uL (160-400); Red Blood Count 4.09 X10*6/uL (4.60-5.80); Red Cell Distribution Width 11.3 % (11.0-16.0); White Blood Count 4.6 X10*3/uL (4.8-10.8)
[2023-12-28 13:31] LABS: Alanine Aminotransferase 27 U/L (0-40); Albumin Level 4.7 g/dL (3.5-5.0); Alkaline Phosphatase 65 U/L (39-117); Anion Gap 13 (12-20); Aspartate Amino Transferase 27 U/L (5-37); Bilirubin Total 1.3 mg/dL (0.0-1.0); Blood Urea Nitrogen 11 mg/dL (9-16); Calcium 9.6 mg/dL (8.4-10.2); Carbon Dioxide 26 mmol/L (22-29); Chloride 106 mmol/L (96-108); Creatinine Clr Calc Pharmacy 106.8; Estimated Glomerular Filt Rate > 60; Glucose Random 99 mg/dL (60-115); Magnesium 2.2 mg/dL (1.6-2.6); Potassium 3.9 mmol/L (3.3-5.1); Sodium 141 mmol/L (135-145); Total Protein 7.4 g/dL (6.5-8.0)
[2023-12-28 13:39] LABS: Troponin-I High Sensitivity < 2.7 ng/L (<3.5-35.0)
[2023-12-28 13:58] LABS: Influenza A PCR NEGATIVE (Negative); Influenza B PCR NEGATIVE (Negative); Resp Syncy Virus RNA Qual PCR NEGATIVE (Negative); SARS COV2 PCR INHOUSE NEGATIVE (Negative)
[2023-12-28 22:00] VITALS: BP 138/72; PULSE 67; RESP 16; TEMP 36.9; O2SAT 97
[2023-12-28 22:23] VITALS: BP 138/72; PULSE 67; RESP 16; TEMP 36.9; O2SAT 97
== END 2023-12-28 22:23 | disposition home or self-care (01) ==
PROVIDERS: Physician Assistant Medical; Emergency Provider Emergency Medicine
DX: S06.0X0A Concussion without loss of consciousness, initial encounter (principal); R55 Syncope and collapse; R11.0 Nausea; R00.1 Bradycardia, unspecified; M54.2 Cervicalgia; R51.9 Headache, unspecified; F17.210 Nicotine dependence, cigarettes, uncomplicated; X58.XXXA Exposure to other specified factors, initial encounter; Y93.89 Activity, other specified; Y92.89 Other specified places as the place of occurrence of the external cause; Y99.8 Other external cause status; Z03.818 Encounter for observation for suspected exposure to other biological agents ruled out; Z79.899 Other long term (current) drug therapy
CPT/HCPCS: 0241U; 70450; 71046; 72125; 80053; 83735; 84484; 85025; 93005; 99284

== ENCOUNTER → 2023-12-28 12:29 | Outpatient (BNV) | payer OTHER, SELFPAY | PROVIDERS: Visit Provider Radiology Diagnostic Radiology | DX: R55 Syncope and collapse (principal) | CPT/HCPCS: 71046 ==

== ENCOUNTER → 2023-12-28 12:29 | Outpatient (BNV) | payer OTHER, SELFPAY | PROVIDERS: Visit Provider Internal Medicine Cardiovascular Disease | DX: R55 Syncope and collapse (principal); R00.1 Bradycardia, unspecified | CPT/HCPCS: 93010 ==

== ENCOUNTER 2024-03-03 15:49 | Outpatient (AMB) | payer OTHER, SELFPAY ==
--- NOTE | 2024-03-03 15:52 | A.OFFVIS_ITS ---
Vital Signs 03/03/24 15:55 Height 5 ft 6 in Weight 137 lb 10.225 oz BMI 22.2 BP 116/60 Blood Pressure Location Rt brachial Position Sitting Pulse 90 Pulse Source Pulse Oximeter Intake Visit Reasons: f/u postsurgical hypothyroidism Intake Note: Patient present today for Postsurgical Hypothyroidism follow up. Tyre Fitter Required: Yes Tyre Fitter Language: State Trooper Services: Tyre Fitter Present Tyre Fitter Name: Shara Information Interpreted: non-clinical & clinical Accompanied by: Self / Same As Patient Allergies No Known Allergies Allergy (Verified 03/03/24 16:00) Medication List - Last Reconciled 03/03/24 by Yonis Dang MD albuterol sulfate 90 mcg/actuation 2 puffs PO QID PRN fluticasone propionate 50 mcg/actuation 2 sprays intranasal DAILY levothyroxine 75 mcg PO DAILY 30 days lidocaine 5% 5 patches topical DAILY HPI Comments Details: 32 yo male today for fup visit, for post surgical hypothyroidism. He is feeling well. Has no complaints. Last visit I had some concern about acromegaly. The IGF-1 was normal. He is currently on levothyroxine 75 mcg daily. Has a good method of administration is 100% adherent. He is complaining of fatigue, increased sweating. He reports that he sweats a lot at nighttime. He also is complaining that his hands are getting bigger. His complaining of hand pain in the joints. He has h/o of Graves disease, treated with total thyroidectomy on 5 due to active graves disease and smoking. He is 100 % adherent, but is taking it with Vit D. He denies diarrhea, palpitations, denies dysphagia, dyspnea, dysphonia, denies tremors, palpitations, irritability, + anxiety, denies eye dryness, eye pain, excessive lacrimation, diplopia 01/30/2020 [facility] TSH 3.05 mIU/mL Free T4 1.2 ng/dL IGF-1 137 ng per mL Laboratory Tests 02/18/18 09:30 Free T4 1.76 TSH 3rd Generation 0.01 L Claims compliance [facility] Medical History Graves disease Post-surgical hypothyroidism Surgical History Hx of thyroidectomy Family History Father No problems noted. Mother Depression Maternal Grandfather Cancer Maternal Aunt Cancer Social History Household Members: Significant Other and Children Housing: Apartment Are you a primary interior plant caretaker to a significant other at home: No Do you presently have visiting nurse or other home services: No Patient Tobacco Use Status: Current someday Tobacco user Tobacco use type: Cigarette Substance Use Type: Marijuana service: No Current occupational status: employed Physical Exam Vital Signs: BMI result Body Mass Index 23.0 Const Other: Healed scar status post thyroidectomy Assessment & Plan Assessment & Plan (1) Post-surgical hypothyroidism: Code(s): E89.0 - Postprocedural hypothyroidism Category: Medical Plan: This is a 33-year-old male with a history of post-surgical hypothyroidism. He appears to be clinically and biochemically euthyroid on 75 mcg levothyroxine. Plan is to continue current therapy. At this point,, patient returned to the care of his primary care provider returned back to endocrinology as needed Medications: Refilled levothyroxine daily on an empty stomach and do not take at the same time as other medications 75 mcg PO DAILY 30 tabs 4RF 30 days E89.0 - Postprocedural hypothyroidism Coding Level of Care Code Est Pt Level 3 (76829) Diagnoses Post-surgical hypothyroidism E89.0
[2024-03-03 15:55] VITALS: BP 116/60; PULSE 90; BMI 22.2
== END 2024-03-03 16:02 | disposition home or self-care (01) ==
PROVIDERS: Visit Provider Internal Medicine Endocrinology, Diabetes & Metabolism
DX: E89.0 Postprocedural hypothyroidism (principal)
CPT/HCPCS: 99213

== ENCOUNTER → 2024-03-03 15:49 | Outpatient (BNVA) | payer OTHER, SELFPAY | PROVIDERS: Visit Provider Internal Medicine Endocrinology, Diabetes & Metabolism | DX: E89.0 Postprocedural hypothyroidism (principal) | CPT/HCPCS: 99212 ==

== ENCOUNTER 2024-08-23 14:55 | Outpatient (REF) | payer OTHER, SELFPAY ==
--- OUTSIDE RECORDS SUMMARY | 2024-08-23 15:38 | XMS_ITS | Clinical Summary ---
Author Organization [employer] Address [address] [place] [address] [address] [place] [address] Care Team Providers Care Mail Service Coordinator Name Role Phone Meenakshi Gramajo MD Primary Care Provider [phone] Medications levothyroxine (Synthroid, Levoxyl) 88 MCG tabletIndications: Acquired hypothyroidism Take 1 tablet (88 mcg) by mouth in the morning. 90 tablet 3 Active lidocaine (Lidoderm) 5 % patchIndications:P ain APPLY 1 PATCH TOPICALLY TO SKIN, LEAVE ON FOR 12 HOURS AND OFF FOR 12 HOURS DIRECTED IN THE MORNING 30 patch 3 Active fluticasone (Flonase) 50 MCG/ACT nasal spray USE 2 SPRAYS IN EACH NOSTRIL DAILY NEEDED FOR CONGESTION 48 g 2 4 Active Active Problems Problem Noted Date Diagnosed Date Cervical lymphadenopathy 10/22/2017 Inguinal lymphadenopathy 10/22/2017 Night sweats 10/22/2017 Dysuria 09/17/2017 Hypercalcemia 09/17/2017 Swelling of inguinal region 09/17/2017 Acquired hypothyroidism 01/13/2017 History of thyroidectomy 01/13/2017 Anxiety 05/23/2014 Rash 05/23/2014 Encounters Date Type Department Care Team Description 08/22/2024 Orders Only [facility] [address] [place] [address] Meenakshi Gramajo MD Underweight (Primary Dx) 08/22/2024 Telephone [facility] [address] [place], [place] [phone] Meenakshi Gramajo MD Med Refill 08/18/2024 Telephone [facility] [address] [place] [address] Meenakshi Gramajo MD Med Refill from Last 3 Months Social History Tobacco Use Types Packs/Day Years Used Date Smoking Tobacco: Never Assessed Sex and Gender Information Value Date Recorded Sex Assigned at Male 12/16/2021 10:27 AM EDT Legal Sex Male 10:27 AM EDT Gender Identity Male 12/16/2021 10:27 AM EDT Sexual Orientation Straight 12/16/2021 10 :27 AM EDT Last Filed Vital Signs Vital Sign Reading Time Taken Comments Blood Pressure 128/88 07/24/2020 12:06 AM EDT Pulse 70 07/24/2020 12:06 AM EDT Temperature - - Respiratory Rate - - Oxygen Saturation - - Inhaled Oxygen Concentration - - Weight 61.2 kg (135 lb) 07/24/2020 12:06 AM EDT Height 170.2 cm (5' 7 ) 07/24/2020 12:06 AM EDT Body Mass Index 21.14 07/24/2020 12:06 AM EDT Plan of Treatment Upcoming Encounters Date Type Department Care Team (Late st Contact Info) Description 10/28/2024 2:15 PM EDT Office Visit [facility] [address] [place] [address] Meenakshi Gramajo MD [address] [place] [address] Health Maintenance Due Date Last Done Comments Depression Screening 1989 HIV Screening 1989 SDOH Screening 1989 Disability Screening 1989 Alcohol/Substance Use Screening 2001 Tobacco Screening 2001 Family Planning (PISQ) 2004 HPV Vaccines (1 - Male 3-dos e series) 2004 Hepatitis C Screening 09/23/2007 Hepatitis B Vaccines (1 of 3 - 19+ 3-dose series) 2008 COVID-19 Vaccine (3 - 2023-2 5 season) 2023 11/05/2020, 10/02/2020 Influenza Vaccine (#1) 2024 DTaP/Tdap/Td Vaccines (2 - T d or Tdap) 10/23/2027 10/22/2017 Zoster Vaccines (1 of 2) 09/23/2039 RSV Patients and Patients Aged 60 years or older (1 - 1-dose 75+ series) 2064 HIB Vaccines Aged Out No longer eligi ble based on patient's age to complete this topic Hepatitis A Vaccines Aged Out No long er eligible based on patient's age to complete this topic IPV Vaccines Aged Out No longer eligi ble based on patient's age to complete this topic Meningococcal B Vaccine Aged Out No l onger eligible based on patient's age to complete this topic Meningococcal Vaccine Aged Out No yessenia anderson eligible based on patient's age to complete this topic Pneumococcal Vaccine: Pediatrics (0 to 5 Years) and At-Risk Patients (6 to 49) Years Aged Out No longer eligible b ased on patient's age to complete this topic RSV under 20 months Aged Out No longe r eligible based on patient's age to complete this topic Rotavirus Vaccines Aged Out No longer eligible based on patient's age to complete this topic Insurance [facility] C3 Care Teams Mail Service Coordinator Relationship Specialty Start Date End Date Meenakshi Gramajo MD [address] [place] [address] PCP - General Family Medicine 10/27/22
[2024-08-23 17:21] LABS: MANUAL DIFF FLAG NO
[2024-08-23 17:37] LABS: Hematocrit 38.2 % (42.0-52.0); Hemoglobin 12.8 g/dl (14.0-18.0); Imm Gran Abs Auto 0.01 X10*3/uL (0.00-0.03); Imm Gran Pct Auto 0.2 % (0.0-0.4); Lymphocytes Absolute Auto 2.6 X10*3/uL (1.2-4.9); Mean Corpuscular HGB Conc 33.5 g/dl (31.0-36.0); Mean Corpuscular Hemoglobin 32.5 pg (27.0-33.0); Mean Corpuscular Volume 97.0 fL (80.0-98.0); NRBC Abs Auto 0.000 X10*3/uL (0.0-0.012); NRBC Pct Auto 0.0 /100WBC (0.0-0.2); Platelet Count 297 X10*3/uL (160-400); Red Blood Count 3.94 X10*6/uL (4.60-5.80); White Blood Count 5.6 X10*3/uL (4.8-10.8)
[2024-08-23 17:40] LABS: Hemoglobin A1C 89.7347 umol/L; Total Hemoglobin (HGBA1C) 3405.1417 umol/L
[2024-08-23 19:05] LABS: Free T4 (Free Thyroxine) 0.73 ng/dL (0.71-1.85)
== END 2024-08-23 14:56 | disposition home or self-care (01) ==
LOC: HO.HHCL 14:55
PROVIDERS: PCP General Practice; Visit Provider General Practice
DX: R63.6 Underweight (principal)
CPT/HCPCS: 36415; 83036; 84439; 84443; 85025

== ENCOUNTER 2024-10-28 14:44 | Outpatient (REF) | payer OTHER, SELFPAY ==
--- OUTSIDE RECORDS SUMMARY | 2024-10-28 14:15 | XMS_ITS | Encounter Summary ---
Author Organization [employer] [facility] Address [address] [place] [address] 7[address] [place] [address] Care Team Providers Care Interventional Cardiologist Name Role Phone Meenakshi Gramajo MD Primary Care Provider [phone] Reason for Referral * Consultation (Routine) - Authorized Specialty Diagnoses / Procedures Referred By Kya boyle Referred To Contact Dental Scuba Diving Instructor / Dentistry Diagnoses Chronic dental pain Meenakshi Gramajo MD [address] [place] [address] Phone: tel: fax: Referral ID Status Reason Start Date Expiration Date Visits Requested Visits Authorized [id number] Authorized Consult and Treat 10/28/2024 10/28/2025 1 1 Encounter Details Date Type Department Care Team (Late st Contact Info) Description 10/28/2024 2:15 PM EDT Office Visit [facility] [address] [place] [address] [phone] Meenakshi Gramajo MD [address] [place] [address] [phone] Anxiety (Primary Dx); Chronic dental pain; Screening examination for STI; Encounter for immunization Social History Tobacco Use Types Packs/Day Years Used Date Smoking Tobacco: Every Day Cigarettes Tobacco Cessation:Ready to Q uit: Not Asked; Counseling Given: Not Answered Depression Answer Date Recorded Patient Health Questionnaire-9 Score 2 10/28/2024 Patient Health Questionnaire-9 Score 2 10/28/2024 Last PHQ-9: Questionnaire Data Not on file 0 10/28/2024 Housing Stability Answer Date Recorded What is your housing situation today? I have harjinder kaur 10/21/[address] you li ve. Do you have problems with any of the following? None of the above 10/21/2024 Food Insecurity Answer Date Recorded Within the past 12 months, y ou worried that your food would run out before you got money to buy more: Never True 10/21/2024 Within the past 12 months,th e food you bought just didn't last and you didn't have enough money to get more: Never True 06/2024 Transportation Answer Date Recorded In the past 12 months, has l ack of transportation kept you from medical appts, meetings, work or from getting things needed for daily living? No 10/21/2024 Utilities Answer Date Recorded In the past 12 months, has t he electric, gas, oil or water company threatened to shut off services in your home? No 10/21/2024 Depression Answer Date Recorded Patient Health Questionnaire-2 Score 0 10/28/2024 Internet Access Answer Date Recorded Internet Access Q1 Yes 10/21/2024 Internet Access Q2 Not on file 10/21/2024 Sex and Gender Information Value Date Recorded Sex Assigned at Male 12/16/2021 10:27 AM EDT Legal Sex Male 10:27 AM EDT Gender Identity Male 12/16/2021 10:27 AM EDT Sexual Orientation Straight 12/16/2021 10 :27 AM EDT documented as of this encounter Last Filed Vital Signs Vital Sign Reading Time Taken Comments Blood Pressure 124/82 10/28/2024 2:06 PM EDT Pulse 75 10/28/2024 2:06 PM EDT Temperature 37 C (98.6 F) 10/28/2024 2:06 PM EDT Respiratory Rate 18 10/28/2024 2:06 PM EDT Oxygen Saturation 98% 10/28/2024 2:06 PM EDT Inhaled Oxygen Concentration - - Weight 62.5 kg (137 lb 12.8 oz) 10/28/2024 2:06 PM EDT Height 170.2 cm (5' 7 ) 10/28/2024 2:06 PM EDT Body Mass Index 21.58 10/28/2024 2:06 PM EDT documented in this encounter Functional Status * Over the past 2 weeks, how often have you been bothered by any of the following problems? Question Answer Date of Assessment Author Patient Health Questionnaire -2 Score 0 10/28/2024 2:43 PM EDT Manny Kasper MA * Little interest or pleasure in doing things Answer Date of Assessment Author Not at all 10/28/2024 2:43 PM EDT Manny Kasper MA * Feeling down, depressed, or hopeless Answer Date of Assessment Author Not at all 10/28/2024 2:43 PM EDT Manny Kasper MA * Trouble falling or staying asleep, or sleeping too much Answer Date of Assessment Author Not at all 10/28/2024 2:43 PM EDT Manny Kasper MA * Feeling tired or having little energy Answer Date of Assessment Author More than half the days 10/28/2024 2:43 PM EDT Manny Christensen MA * Poor appetite or overeating Answer Date of Assessment Author Not at all 10/28/2024 2:43 PM EDT Manny Kasper MA * Feeling bad about yourself - or that you are a failure or have let yourself or your family down Answer Date of Assessment Author Not at all 10/28/2024 2:43 PM EDT Manny Kasper MA * Trouble concentrating on things, such as reading the newspaper or watching television Answer Date of Assessment Author Not at all 10/28/2024 2:43 PM EDT Manny Kasper MA * Moving or speaking so slowly that other people could have noticed? Or the opposite - being so fidgety or restless that you have been moving around a lot more than usual. Answer Date of Assessment Author Not at all 10/28/2024 2:43 PM EDT Manny Kasper MA * Thoughts that you would be better off or hurting yourself in some way Answer Date of Assessment Author Not at all 10/28/2024 2:43 PM EDT Manny Kasper MA * Patient Health Questionnaire-9 Score Answer Date of Assessment Author 2 10/28/2024 2:43 PM EDT Manny Kasper MA * How difficult have these problems made it for you to do your work, take care of things at home, or get along with other people? Answer Date of Assessment Author Not difficult at all 10/28/2024 2:43 PM EDT Manny Maya MA * Over the last 2 weeks, how often have you been bothered by any of the following problems? Question Answer Date of Assessment Author Feeling nervous, anxious, or on edge 1 10/28/2024 2:43 PM EDT Manny Kasper MA Not being able to stop or co ntrol worrying 3 10/28/2024 2:43 PM EDT Manny Kasper MA Worrying too much about diff erent things 0 10/28/2024 2:43 PM EDT Manny Kasper MA Trouble relaxing 0 10/28/2024 2:43 PM EDT Manny Christensen MA Being so restless that it is hard to sit still 2 10/28/2024 2:43 PM EDT Manny Kasper MA Becoming easily annoyed or irritable 0 10/28/2024 2:43 PM EDT Manny Kasper MA Feeling afraid as if somethi ng awful might happen 0 10/28/2024 2:43 PM EDT Manny Kasper MA ADRIA-7 Total Score 6 10/28/2024 2:43 PM ANNIET Manny Kasper MA documented as of this encounter Plan of Treatment Scheduled Orders Name Type Priority Associated Diagnoses Orde r Schedule Chlamydia/N. Gonorrhoeae RNA, TMA, Urogenitial Microbiology Routine Screening examination for STI Expected: 10/28/2024 (Approximate), Expires: 10/28/2025 HIV-1/2 Antigen and Antibodies, Fourth Generation, with Reflexes Lab Routine Screening examination for STI Expected: 10/28/2024 (Approximate), Expires: 10/28/2025 Hepatitis C Antibody with Reflex to HCV, RNA, Quantitative, Real-Time PCR Lab Routine Screening examination for STI Expected: 10/28/2024, Expires: 10/28/2025 RPR (Monitor) with Reflex to Titer Lab Routine Screening examination for STI Expected: 10/28/2024, Expires: 10/28/2025 Scheduled Referrals Name Type Priority Associated Diagnoses Orde r Schedule Referral to [facility] Dental Adult Outpatient Referral Routine Chronic dental pain Expected: 10/28/2024 (Approximate), Expires: 10/28/2025 documented as of this encounter Procedures Procedure Name Priority Date/Time Associated Diagnosis Comments LIPID PANEL, STANDARD Routine 10/28/2024 2:54 PM EDT Anxiety documented in this encounter Results * Lipid Panel, Standard (10/28/2024 2:54 PM EDT) Triglycerides 65 <150 mg/dL [facility] Comment:Desirable Triglyceri de: less than 150 mg/dLBorderline High Triglyceride 150-199 mg/dLHigh Triglyceride: 200-499 mg/dLVery High Triglyceride: greater than or equal to 5OO mg/dL Cholesterol 156 <200 mg/dL [facility] Comment:Desirable Cholestero l: less than 200 mg/dLBorderline High Cholesterol: 200-239 mg/dLHigh Cholesterol: greater than 239 mg/dL LDL Cholesterol Calculated 82 <100 mg/dL [facility] Comment:Desirable LDL: less than 100 mg/dLNear Optimal/Above Optimal LDL: 110- 129 mg/dLBorderline High LDL: 130-159 mg/dLHigh LDL: 160-189 mg/dLVery High LDL: greater than or equal to 190 mg/dL HDL Cholesterol 61 >40 mg/dL [facility] Comment:Desirable HDL: great er than 40 mg/dL Note: This HDL assay may give artificially low results in patients with liver disease. Blood Venous blood specimen / Unknown 10/28/2024 2:54 PM EDT 10/28/2024 4:01 PM EDT Meenakshi Gramajo MD LAB BLOOD ORDERABLES Final Res ult [facility] [address] [place] [address] [phone] documented in this encounter Visit Diagnoses Diagnosis Anxiety- Primary Anxiety state, unspecified Chronic dental pain Screening examination for STI Encounter for immunization documented in this encounter Additional Health Concerns Assessment Noted Time PHQ-9 Depression Total Score: 2 10/29/19 25 2:43 PM EDT documented as of this encounter Care Teams Interventional Cardiologist Relationship Specialty Start Date End Date Meenakshi Gramajo MD [address] [place] [phone] PCP - General Family Medicine 10/27/22 documented as of this encounter
[2024-10-28 16:31] LABS: Cholesterol 156 mg/dL (<200); HDL Cholesterol 61 mg/dL (>40); Triglycerides 65 mg/dL (<150)
--- OUTSIDE RECORDS SUMMARY | 2024-10-28 17:25 | XMS_ITS | Encounter Summary ---
Author Organization [employer] Address [address] [facility] [address] [place] [address] Care Team Providers Care Blend Technician Name Role Phone Meenakshi Gramajo MD Primary Care Provider [phone] Reason for Visit * Reason Onset Date Comments chart prep 10/27/2024 Encounter Details Date Type Department Care Team ([facility] st Contact Info) Description 10/27/2024 Telephone [facility] [address] [place], [place] [phone] Meenakshi Gramajo MD [address] [place], [place] [phone] chart prep Social History Tobacco Use Types Packs/Day Years Used Date Smoking Tobacco: Never Assessed Depression Answer Date Recorded Patient Health Questionnaire-9 Score 2 10/28/2024 Patient Health Questionnaire-9 Score 2 10/28/2024 Last PHQ-9: Questionnaire Data Not on file 0 10/28/2024 Housing Stability Answer Date Recorded What is your housing situation today? I have harjinderjulián kaur 10/21/[address] you [...] AM EDT documented as of this encounter Miscellaneous Notes * Telephone Encounter - Manny Kasper MA - 10/27/2024 11:08 AM EDT Chart Prep Labs: done Images: not applicable Referrals: not applicable Vaccines due: Covid, Flu, Hep B, and HPV Screenings: not applicable Overdue care gaps: SBIRT, PHQ-9, ADRIA-7, and Tobacco documented in this encounter Plan of Treatment Not on file documented as of this encounter Visit Diagnoses Not on filedocumented in this encounter Care Teams Blend Technician Relationship Specialty Start Date End Date Meenakshi Gramajo MD [address] [place] [phone] PCP - General Family Medicine 10/27/22 documented as of this encounter
--- OUTSIDE RECORDS SUMMARY | 2024-10-28 17:25 | XMS_ITS | Encounter Summary ---
Author Organization [employer] [facility] Address [address] [place] [address] [address] [place] [address] Care Team Providers Care Accountant Controller Name Role Phone Meenakshi Gramajo MD Primary Care Provider [phone] Encounter Details Date Type Department Care Team (Late st Contact Info) Description 08/23/2024 Orders Only [facility] [address] [place], [place] [phone] Meenakshi Gramajo MD [address] [place], [place] [phone] Acquired hypothyroidism Social History Tobacco Use Types Packs/Day Years Used Date Smoking Tobacco: Never Assessed Sex and Gender Information Value Date Recorded Sex Assigned at Male 12/16/2021 10:27 AM EDT Legal Sex Male 10:27 AM EDT Gender Identity Male 12/16/2021 10:27 AM EDT Sexual Orientation Straight 12/16/2021 10 :27 AM EDT documented as of this encounter Plan of Treatment Not on file documented as of this encounter Visit Diagnoses Diagnosis Acquired hypothyroidism Unspecified hypothyroidism documented in this encounter Care Teams Accountant Controller Relationship Specialty Start Date End Date Meenakshi Gramajo MD [address] [place] [address] [phone] PCP - General Family Medicine 10/27/22 documented as of this encounter
--- OUTSIDE RECORDS SUMMARY | 2024-10-28 17:26 | XMS_ITS | Encounter Summary ---
Author Organization [employer] Address [address] [facility] [address] [place] [address] Care Team Providers Care Tacking Machine Operator Name Role Phone Meenakshi Gramajo MD Primary Care Provider [phone] Encounter Details Date Type Department Care Team (Latest Contact Info) Description 10/28/2024 Travel Social History Tobacco Use Types Packs/Day Years Used Date Smoking Tobacco: Every Day Cigarettes Depression Answer Date Recorded Patient Health Questionnaire-9 [...] AM EDT documented as of this encounter Functional Status * Over the [...] Trouble relaxing 0 10/28/2024 2:43 PM EDT C Manny sanchez MA Being so restless that it is hard to sit still 2 10/28/2024 2:43 PM EDT Manny Kasper MA Becoming easily annoyed or irritable 0 10/28/2024 2:43 PM EDT Manny Kasper MA Feeling afraid as if somethi ng awful might happen 0 10/28/2024 2:43 PM EDT Manny Kasper MA ADRIA-7 Total Score 6 10/28/2024 2:43 PM EDT Manny Kasper MA documented as of this encounter Plan of Treatment Not on file documented as of this encounter Visit Diagnoses Not on filedocumented in this encounter Additional Health Concerns Assessment Noted Time PHQ-9 Depression Total Score: 2 10/29/19 25 2:43 PM EDT documented as of this encounter Care Teams Tacking Machine Operator Relationship Specialty Start Date End Date Meenakshi Gramajo MD [address] [place] [address] PCP - General Family Medicine 10/27/22 documented as of this encounter
--- OUTSIDE RECORDS SUMMARY | 2024-10-28 17:26 | XMS_ITS | Encounter Summary ---
Author Organization [employer] [facility] Address [address] [place] [address] [address] [place] [address] Care Team Providers Care Sack Cleaner Name Role Phone Meenakshi Gramajo MD Primary Care Provider [phone] Reason for Visit * Reason Comments Med Refill Encounter Details Date Type Department Care Team (Late st Contact Info) Description 07/20/2023 Refill [facility] [address] [place], [place] [phone] Demar Fields AGNP Pain Social History Tobacco Use Types Packs/Day Years [...] as of this encounter Visit Diagnoses Diagnosis Pain Generalized pain documented in this encounter Care Teams Sack Cleaner Relationship Specialty Start Date End Date Meenakshi Gramajo MD [address], [place] [phone] PCP - General Family Medicine 10/27/22 documented as of this encounter
--- OUTSIDE RECORDS SUMMARY | 2024-10-28 17:26 | XMS_ITS | Clinical Summary ---
Author Organization [employer] Address [address] [place] [address] [address] [place] [address] Care Team Providers Care Roll Forming Machine Operator Name Role Phone Meenakshi Gramajo MD Primary Care Provider [phone] Allergies No known active allergies Medications lidocaine (Lidoderm) 5 % patchIndications:P ain APPLY 1 PATCH TOPICALLY TO SKIN, LEAVE ON FOR 12 HOURS AND OFF FOR 12 HOURS DIRECTED IN THE MORNING 30 patch 3 Active fluticasone (Flonase) 50 MCG/ACT nasal spray USE 2 SPRAYS IN EACH NOSTRIL DAILY NEEDED FOR CONGESTION 48 g 2 4 Active levothyroxine (Synthroid, Levoxyl) 88 MCG tabletIndications: Acquired hypothyroidism Take 1 tablet (88 mcg) by mouth Once per day. 90 tablet 3 5 Active Active Problems Problem Noted Date Diagnosed Date Cervical lymphadenopathy 10/22/2017 Inguinal lymphadenopathy 10/22/2017 Night sweats 10/22/2017 Dysuria 09/17/2017 Hypercalcemia 09/17/2017 Swelling of inguinal region 09/17/2017 Acquired hypothyroidism 01/13/2017 History of thyroidectomy 01/13/2017 Anxiety 05/23/2014 Rash 05/23/2014 Encounters Date Type Department Care Team Description 10/28/2024 2:15 PM EDT Office Visit [facility] [address] [place] [phone] Meenakshi Gramajo MD Anxiety (Primary Dx); Chronic dental pain; Screening examination for STI; Encounter for immunization 10/28/2024 Travel 10/27/2024 Telephone [facility] [address] [place] [address] Meenakshi Gramajo MD chart prep 10/21/2024 Patient Outreach [facility] [address] [place], [place] [phone] Meenakshi Gramajo MD Pre-visit Planning (SDOH negative, Tobacco screening positive. ) 08/23/2024 Orders Only [address] [address] Meenakshi Gramajo MD Acquired hypothyroidism 08/23/2024 Results Follow-Up [address] [address] Meenakshi Gramajo MD TSH W/Reflex to FT4, CBC auto differential, Hemoglobin A1c, T4, Free 08/22/2024 Orders Only [address] [address] Meenakshi Gramajo MD Underweight (Primary Dx) 08/22/[address] [address] Meenakshi Gramajo MD Med Refill 08/18/[address] [address] Meenakshi Gramajo MD Med Refill from Last 3 Months Immunizations Immunization Administration Dates Next Due Pneumococcal Conjugate PCV 20 10/28/2024 Social History Tobacco Use Types Packs/Day Years [...] Mass Index 21.58 10/28/2024 2:06 PM EDT Plan of Treatment Health Maintenance Due Date Last Done Comments HIV Screening 1989 Lipid Panel 1989 10/28/2024 Disability Screening 1989 Family Planning (PISQ) 2004 HPV Vaccines (1 - Male 3-dos e series) 2004 Hepatitis C Screening 09/23/2007 Hepatitis B Vaccines (1 of 3 - 19+ 3-dose series) 2008 COVID-19 Vaccine ( - 2024-2 6 season) 2024 11/05/2020, 10/02/2020 Influenza Vaccine (#1) 2024 SDOH Screening 10/21/2025 10/21/2024 Alcohol/Substance Use Screening 10/28/2025 10/28/2024 Depression Screening 10/28/2025 10/28/2024, 10/28/2024 Tobacco Screening 10/28/2025 10/28/2024 DTaP/Tdap/Td Vaccines (2 - T d or Tdap) 10/23/2027 10/22/2017 Zoster Vaccines (1 of 2) 09/23/2039 RSV Patients and Patients Aged 60 years or older (1 - 1-dose 75+ series) 2064 Pneumococcal Vaccine: Pediatrics (0 to 5 Years) and At-Risk Patients (6 to 49) Years Completed 10/28/2024 HIB Vaccines Aged Out No longer eligi [...] on patient's age to complete this topic Procedures Procedure Name Priority Date/Time Associated Diagnosis Comments LIPID PANEL, STANDARD Routine 10/28/2024 2:54 PM EDT Anxiety T4, FREE Routine 08/23/2024 3:00 PM EDT Underweight HEMOGLOBIN A1C Routine 08/23/2024 3:00 PM EDT Underweight CBC WITH AUTO DIFFERENTIAL Routine 08/23/2024 3:00 PM EDT Underweight TSH W/REFLEX TO FT4 Routine 08/23/2024 3 :00 PM EDT Underweight from Last 3 Months Results * Lipid Panel, Standard (10/28/2024 2:54 PM EDT) Triglycerides 65 <150 mg/dL [facility] Comment:Desirable Triglyceri de: less than 150 mg/dLBorderline High Triglyceride 150-199 mg/dLHigh Triglyceride: 200-499 mg/dLVery High Triglyceride: greater than or equal to 5OO mg/dL Cholesterol 156 <200 mg/dL [facility] Comment:Desirable Cholestero l: less than 200 mg/dLBorderline High Cholesterol: 200-239 mg/dLHigh Cholesterol: greater than 239 mg/dL LDL Cholesterol Calculated 82 <100 mg/dL [facility] Comment:Desirable LDL: less than 100 mg/dLNear Optimal/Above Optimal LDL: 110- 129 mg/dLBorderline High LDL: 130-159 mg/dLHigh LDL: 160-189 mg/dLVery High LDL: greater than or equal to 190 mg/dL HDL Cholesterol 61 >40 mg/dL [facility] Comment:Desirable HDL: great er than 40 mg/dL Note: This HDL assay may give artificially low results in patients with liver disease. Blood Venous blood specimen / Unknown 10/28/2024 2:54 PM EDT 10/28/2024 4:01 PM EDT Meenakshi Gramajo MD LAB BLOOD ORDERABLES Final Res ult Performing Organization Address City/[facility] Co de Phone Number [facility] [address] [place] [address] [phone] * (ABNORMAL) TSH W/Reflex to FT4 (08/23/2024 3:00 PM EDT) TSH reflex Free T4 7.15(H) 0.32 - 4.0 uIU/mL [facility] Blood Venous blood specimen / Unknown 08/23/2024 3:00 PM EDT 08/23/2024 5:13 PM EDT Meenakshi Gramajo MD LAB BLOOD ORDERABLES Final Res ult Performing Organization Address City/[facility] Co de Phone Number [facility] [address] [place] [phone] * (ABNORMAL) CBC auto differential (08/23/2024 3:00 PM EDT) White Blood Count 5.6 4.8 - 10.8 X10*3/uL [facility] Red Blood Count 3.94(L) 4.60 - 5.80 X10*6/uL [facility] Hemoglobin 12.8(L) 14.0 - 18.0 g/dl [facility] Hematocrit 38.2(L) 42.0 - 52.0 % [facility] Mean Corpuscular Volume 97.0 80.0 - 98.0 fL [facility] Mean Corpuscular Hemoglobin 32.5 27.0 - 33.0 pg [facility] Mean Corpuscular HGB Conc 33.5 31.0 - 36.0 g/dl [facility] Red Cell Distribution Width 11.2 11.0 - 16.0 % [facility] Platelet Count 297 160 - 400 X10*3/uL [facility] Mean Platelet Volume 10.2 9.4 - 12.4 fL [facility] Neutrophils Percent Auto 42.2(L) 45 - 73 % [facility] Imm Gran Pct Auto 0.2 0.0 - 0.4 % [facility] Lymphocytes Percent Auto 47.0(H) 20 - 40 % [facility] Monocytes Percent Auto 7.2 2 - 11 % [facility] Eosinophils Percent Auto 2.7 0 - 4 % [facility] Basophils Percent Auto 0.7 0 - 2 % [facility] NRBC Pct Auto 0.0 0.0 - 0.2 /100WBC [facility] Neutrophils Absolute Auto 2.4 2.0 - 8.3 x10*3/uL [facility] Imm Gran Abs Auto 0.01 0.00 - 0.03 X10*3/uL [facility] Lymphocytes Absolute Auto 2.6 1.2 - 4.9 X10*3/uL [facility] Monocytes Absolute Auto 0.4 0.1 - 1.2 X10*3/uL [facility] Eosinophils Absolute Auto 0.2 0.0 - 0.4 X10*3/uL [facility] Basophils Absolute Auto 0.0 0.0 - 0.2 X10*3/uL [facility] NRBC Abs Auto 0.000 0.0 - 0.012 X10*3/uL [facility] Blood Venous blood specimen / Unknown 08/23/2024 3:00 PM EDT 08/23/2024 5:13 PM EDT Meenakshi Gramajo MD LAB BLOOD ORDERABLES Final Res ult Performing Organization Address [facility]/ZIP Co de Phone Number [facility] [address] [place] [phone] * T4, Free (08/23/2024 3:00 PM EDT) Free T4 (Free Thyroxine) 0.73 0.71 - 1.85 ng/dL [facility] 08/23/2024 3:00 PM EDT 08/23/2024 5:13 PM EDT Meenakshi Gramajo MD LAB BLOOD ORDERABLES Final Res ult Performing Organization Address [facility] de Phone Number [facility] [address] [place] [phone] * Hemoglobin A1c (08/23/2024 3:00 PM EDT) Hemoglobin A1c 4.6 <6.0 % [facility] Comment:Hemoglobin A1C Refer ence Range Adults: 4.8 - 6.0 % Non diabetic: < 6.0 % Goal: < 7.0 %Additional Action Suggested: > 8.0 %Note: Hemoglobin A1c results are invalid for patients with abnormal amounts of HbF. Blood transfusions may impact the HbA1c concentration in the patient sample. Estimated Average Glucose 85 mg/dL [facility] Comment:eAG = Estimated ave rage glucose which is %A1C expressed asaverage glucose, using the formula of the [id number] Glucose study (ADAG), Diabetes Care, Vol.31,#8,Sep. 2007 Blood Venous blood specimen / Unknown 08/23/2024 3:00 PM EDT 08/23/2024 5:13 PM EDT us Meenakshi Gramajo MD LAB BLOOD ORDERABLES Final Res ult [facility] [address] [place] [phone] from Last 3 Months Insurance [employer] [facility] 3 Care Teams Roll Forming Machine Operator Relationship Specialty Start Date End Date Meenakshi Gramajo MD [address] [place] [address] PCP - General Family Medicine 10/27/22
[2024-10-29 09:01] LABS: HIV Num 1 0.12 S/CO (0.00-0.99); ~HepC Num1 0.09 S/CO (0.00-0.79); ~Hepatitis C Antibody Nonreactive (Nonreactive)
== END 2024-10-28 14:45 | disposition home or self-care (01) ==
LOC: HO.HHCL 14:44
PROVIDERS: PCP General Practice; Visit Provider General Practice
DX: Z11.3 Encounter for screening for infections with a predominantly sexual mode of transmission (principal); Z11.4 Encounter for screening for human immunodeficiency virus [HIV]; Z11.59 Encounter for screening for other viral diseases; F41.9 Anxiety disorder, unspecified
CPT/HCPCS: 36415; 80061; 86592; 86803; 87389